=== PATIENT | male | born 1955 | race African-American/Black ===

== ENCOUNTER 2019-01-26 11:28 | Outpatient (CLI) | payer OTHER ==
[2019-01-26 11:59] LABS: CLARITY,URINE CLEAR (Clear); COLOR,URINE YELLOW (Yellow); GLUCOSE, URINE NEGATIVE (Neg); KETONES,URINE NEGATIVE (Neg); LEUKOCYTE ESTERASE ,URINE NEGATIVE (Neg); NITRITES, URINE NEGATIVE (Neg); OCCULT BLOOD,URINE NEGATIVE (Neg); PROTEIN,URINE NEGATIVE (Neg); UROBILINOGEN,URINE 0.2 E.U/dL (0.2-1.0)
[2019-01-26 12:01] LABS: UA COLLECTION TYPE VOIDED
[2019-01-26 12:01] LABS: BASOPHILS % (AUTO) 1.1 % (0-1); EOSINOPHILS # (AUTO) 0.1 X10'3 (0-0.9); HEMOGLOBIN 14.4 g/dl (14.0-17.9); LYMPHOCYTES # (AUTO) 0.9 X10'3 (1.1-4.8); MEAN CORPUSCULAR HEMOGLOBIN 30.5 PG (27.0-31.0); MONOCYTES # (AUTO) 0.3 X10'3 (0-0.9); NEUTROPHILS # (AUTO) 1.7 X10'3 (1.8-7.7)
[2019-01-26 12:03] LABS: EOSINOPHILS % (AUTO) 3.1 % (0-6); HEMATOCRIT 42.2 % (42.0-52.0); LYMPHOCYTES % (AUTO) 30.6 % (21-51); MEAN CORPUSCULAR HGB CONC 34.1 g/dL (33.0-36.5); MEAN CORPUSCULAR VOLUME 89.5 FL (78-98); MONOCYTES % (AUTO) 10.3 % (2-12); NEUTROPHILS % (AUTO) 54.9 % (42-75); PLATELET COUNT 220 X10'3 (140-440); RED BLOOD COUNT 4.72 X10'6 (4.70-6.10); RED CELL DISTRIBUTION WIDTH 13.5 % (11.5-14.5)
[2019-01-26 12:31] LABS: TOTAL CELLS COUNTED 100
[2019-01-26 12:32] LABS: PLATELET ESTIMATE NORMAL
[2019-01-26 12:33] LABS: GIANT PLATELET FEW; LARGE PLATELETS MODERATE
[2019-01-26 12:37] LABS: ALANINE AMINOTRANSFERASE 29 U/L (12-78); ALBUMIN 4.1 G/DL (3.4-5.0); ALBUMIN/GLOBULIN RATIO 1.2 (1.1-1.5); ALKALINE PHOSPHATASE 100 IU/L (46-116); ANION GAP 8 (8-16); ASPARTATE AMINO TRANSFERASE 21 U/L (10-37); BILIRUBIN,TOTAL 0.6 MG/DL (0.1-1.0); BLOOD UREA NITROGEN 10 MG/DL (7-18); BUN/CREATININE RATIO 10.8 (5.4-32.0); CALCIUM 9.2 MG/DL (8.5-10.1); CHLORIDE 104 MMOL/L (99-107); CHOLESTEROL 158 MG/DL (0-200); CREATININE 0.93 MG/DL (0.60-1.10); GLUCOSE 91 MG/DL (70-104); HDL CHOLESTEROL 81 MG/DL (35-60); LDL CHOLESTEROL 75 MG/DL (50-100); SODIUM 141 MMOL/L (135-145); TOTAL PROTEIN 7.5 G/DL (6.4-8.2); TRIGLYCERIDES 32 MG/DL (20-135); eGFR > 90 ML/MIN
[2019-01-27 10:00] LABS: % FREE PSA 33.3 % (.)
== END 2019-01-26 23:59 | disposition home or self-care (01) ==
LOC: LAB 11:28
PROVIDERS: ATTEND Family Medicine
DX: Z12.5 Encounter for screening for malignant neoplasm of prostate (principal); R00.2 Palpitations; E55.9 Vitamin D deficiency, unspecified; E53.8 Deficiency of other specified B group vitamins; E78.5 Hyperlipidemia, unspecified; R53.83 Other fatigue; Z76.89 Persons encountering health services in other specified circumstances
CPT/HCPCS: 80053; 80061; 81003; 82306; 82607; 82746; 84153; 84154; 84439; 84443; 85025

== ENCOUNTER 2019-06-06 12:32 | Outpatient (CLI) | payer OTHER ==
[2019-06-06 12:59] LABS: EOSINOPHILS # (AUTO) 0.2 X10'3 (0-0.9); EOSINOPHILS % (AUTO) 6.2 % (0-6); HEMOGLOBIN 13.8 g/dl (14.0-17.9); WHITE BLOOD COUNT 3.4 X10'3 (4.5-11.0)
[2019-06-06 13:01] LABS: BASOPHILS % (AUTO) 1.3 % (0-1); HEMATOCRIT 40.6 % (42.0-52.0); LYMPHOCYTES # (AUTO) 1.1 X10'3 (1.1-4.8); LYMPHOCYTES % (AUTO) 32.6 % (21-51); MEAN CORPUSCULAR HEMOGLOBIN 30.4 PG (27.0-31.0); MEAN CORPUSCULAR VOLUME 89.4 FL (78-98); MEAN PLATELET VOLUME 8.9 FL (7.4-10.4); MONOCYTES # (AUTO) 0.4 X10'3 (0-0.9); MONOCYTES % (AUTO) 10.6 % (2-12); NEUTROPHILS # (AUTO) 1.7 X10'3 (1.8-7.7); NEUTROPHILS % (AUTO) 49.3 % (42-75); PLATELET COUNT 249 X10'3 (140-440); RED BLOOD COUNT 4.54 X10'6 (4.70-6.10); RED CELL DISTRIBUTION WIDTH 13.1 % (11.5-14.5)
[2019-06-06 13:51] LABS: LARGE PLATELETS FEW; PLATELET ESTIMATE NORMAL
== END 2019-06-06 23:59 | disposition home or self-care (01) ==
LOC: LAB 12:32
PROVIDERS: ATTEND Family Medicine
DX: D72.819 Decreased white blood cell count, unspecified (principal)
CPT/HCPCS: 36415; 85025

== ENCOUNTER 2019-11-01 08:01 | Outpatient (CLI) | payer BC ==
[2019-11-01 08:45] LABS: BASOPHILS % (AUTO) 0.9 % (0-1); EOSINOPHILS # (AUTO) 0.2 X10'3 (0-0.9); EOSINOPHILS % (AUTO) 4.5 % (0-6); HEMATOCRIT 42.5 % (42.0-52.0); HEMOGLOBIN 14.2 g/dl (14.0-17.9); LYMPHOCYTES # (AUTO) 1.1 X10'3 (1.1-4.8); LYMPHOCYTES % (AUTO) 29.3 % (21-51); MEAN CORPUSCULAR HEMOGLOBIN 30.6 PG (27.0-31.0); MEAN CORPUSCULAR HGB CONC 33.3 g/dL (33.0-36.5); MEAN CORPUSCULAR VOLUME 91.9 FL (78-98); MEAN PLATELET VOLUME 9.5 FL (7.4-10.4); MONOCYTES # (AUTO) 0.4 X10'3 (0-0.9); MONOCYTES % (AUTO) 11.7 % (2-12); NEUTROPHILS % (AUTO) 53.6 % (42-75); PLATELET COUNT 193 X10'3 (140-440); RED BLOOD COUNT 4.62 X10'6 (4.70-6.10); RED CELL DISTRIBUTION WIDTH 13.2 % (11.5-14.5); WHITE BLOOD COUNT 3.7 X10'3 (4.5-11.0)
[2019-11-01 09:13] LABS: LARGE PLATELETS FEW; PLATELET ESTIMATE NORMAL
== END 2019-11-01 23:59 | disposition home or self-care (01) ==
LOC: LAB 08:01
PROVIDERS: ATTEND Family Medicine
DX: D72.819 Decreased white blood cell count, unspecified (principal)
CPT/HCPCS: 36415; 84153; 84154; 85025

== ENCOUNTER 2020-01-10 09:13 | Outpatient (CLI) | payer BC | END 2020-01-10 23:59 | disposition home or self-care (01) | LOC: LAB 09:13 | PROVIDERS: ATTEND Family Medicine | DX: G50.0 Trigeminal neuralgia (principal) | CPT/HCPCS: 36415; 85651 ==

== ENCOUNTER 2020-01-21 11:40 | Emergency (ER) | payer OTHER ==
[~2020-01-21] VITALS: Ht 170.2 cm; Wt 48.6 kg
[2020-01-21 11:43] VITALS: BP 118/71
--- NOTE | 2020-01-21 12:48 | NUR ---
WAITING ON PLAN
== END 2020-01-21 13:57 | disposition home or self-care (01) ==
LOC: ER 11:40 → EEVIPCON 11:40 → ER 13:57
DX: S90.01XA Contusion of right ankle, initial encounter (principal); W31.89XA Contact with other specified machinery, initial encounter; Y93.89 Activity, other specified; Y92.89 Other specified places as the place of occurrence of the external cause; Y99.8 Other external cause status
CPT/HCPCS: 73610; 99283

== ENCOUNTER → 2020-06-05 | Outpatient (CLI) | payer BC ==
[2020-06-05 10:14] LABS: BASOPHILS % (AUTO) 1.5 % (0-1); EOSINOPHILS # (AUTO) 0.1 X10'3 (0-0.9); EOSINOPHILS % (AUTO) 3.3 % (0-6); HEMOGLOBIN 14.3 g/dl (14.0-17.9); LYMPHOCYTES # (AUTO) 0.8 X10'3 (1.1-4.8); LYMPHOCYTES % (AUTO) 28.5 % (21-51); MEAN CORPUSCULAR HEMOGLOBIN 30.3 PG (27.0-31.0); MEAN CORPUSCULAR HGB CONC 33.3 g/dL (33.0-36.5); MEAN PLATELET VOLUME 9.1 FL (7.4-10.4); MONOCYTES # (AUTO) 0.3 X10'3 (0-0.9); MONOCYTES % (AUTO) 10.9 % (2-12); NEUTROPHILS # (AUTO) 1.5 X10'3 (1.8-7.7); NEUTROPHILS % (AUTO) 55.8 % (42-75); PLATELET COUNT 222 X10'3 (140-440); RED BLOOD COUNT 4.72 X10'6 (4.70-6.10); RED CELL DISTRIBUTION WIDTH 13.4 % (11.5-14.5); WHITE BLOOD COUNT 2.7 X10'3 (4.5-11.0)
[2020-06-05 10:21] LABS: CLARITY,URINE CLEAR (Clear); COLOR,URINE STRAW (Yellow); GLUCOSE, URINE NEGATIVE (Neg); KETONES,URINE NEGATIVE (Neg); LEUKOCYTE ESTERASE ,URINE NEGATIVE (Neg); NITRITES, URINE NEGATIVE (Neg); OCCULT BLOOD,URINE NEGATIVE (Neg); PH,URINE 7.5 (4.8-8.0); PROTEIN,URINE NEGATIVE (Neg); UROBILINOGEN,URINE 0.2 E.U/dL (0.2-1.0)
[2020-06-05 10:24] LABS: UA COLLECTION TYPE CLN CATCH MIDSTREAM
[2020-06-05 10:46] LABS: D-DIMER 0.32 MG/L FEU (0-0.50)
[2020-06-05 10:48] LABS: LARGE PLATELETS FEW; PLATELET ESTIMATE NORMAL; TOTAL CELLS COUNTED 100
[2020-06-05 10:56] LABS: ALANINE AMINOTRANSFERASE 29 U/L (12-78); ALBUMIN 3.9 G/DL (3.4-5.0); ALBUMIN/GLOBULIN RATIO 1.1 (1.1-1.5); ALKALINE PHOSPHATASE 116 IU/L (46-116); ANION GAP 6 (8-16); ASPARTATE AMINO TRANSFERASE 23 U/L (10-37); BILIRUBIN,TOTAL 0.4 MG/DL (0.1-1.0); BLOOD UREA NITROGEN 13 MG/DL (7-18); BUN/CREATININE RATIO 13.4 (5.4-32.0); CALCIUM 9.6 MG/DL (8.5-10.1); CHLORIDE 105 MMOL/L (99-107); CHOL/HDL RATIO 1.9 (0.00-4.99); CHOLESTEROL 166 MG/DL (0-200); CREATININE 0.97 MG/DL (0.60-1.10); GLUCOSE 93 MG/DL (70-104); HDL CHOLESTEROL 88 MG/DL (35-60); LDL CHOLESTEROL 73 MG/DL (50-100); POTASSIUM 4.5 MMOL/L (3.5-5.1); SODIUM 141 MMOL/L (135-145); TOTAL CARBON DIOXIDE 30.4 MMOL/L (24-32); TOTAL PROTEIN 7.4 G/DL (6.4-8.2); TRIGLYCERIDES 34 MG/DL (20-135); eGFR > 90 ML/MIN
[2020-06-05 11:13] LABS: RHEUM FACTOR QUAL REFLEX TITER NEGATIVE (Neg)
== END | disposition home or self-care (01) ==
LOC: LAB 09:44
PROVIDERS: ATTEND Family Medicine
DX: Z00.00 Encounter for general adult medical examination without abnormal findings (principal)
CPT/HCPCS: 36415; 80053; 80061; 81003; 84153; 84439; 84443; 85007; 85025; 85379; 86430

== ENCOUNTER 2020-07-04 08:54 | Emergency (ER) | payer MEDICARE, BC ==
[~2020-07-04] VITALS: Ht 170.2 cm; Wt 49.1 kg
[2020-07-04 09:31] LABS: HEMOGLOBIN 13.9 g/dl (14.0-17.9); LYMPHOCYTES # (AUTO) 0.9 X10'3 (1.1-4.8); MONOCYTES # (AUTO) 0.4 X10'3 (0-0.9); NEUTROPHILS # (AUTO) 1.6 X10'3 (1.8-7.7)
[2020-07-04 09:33] LABS: BASOPHILS % (AUTO) 0.9 % (0-1); EOSINOPHILS # (AUTO) 0.1 X10'3 (0-0.9); EOSINOPHILS % (AUTO) 4.4 % (0-6); HEMATOCRIT 41.9 % (42.0-52.0); LYMPHOCYTES % (AUTO) 29.2 % (21-51); MEAN CORPUSCULAR HEMOGLOBIN 29.9 PG (27.0-31.0); MEAN CORPUSCULAR HGB CONC 33.1 g/dL (33.0-36.5); MEAN CORPUSCULAR VOLUME 90.3 FL (78-98); MEAN PLATELET VOLUME 9.2 FL (7.4-10.4); MONOCYTES % (AUTO) 11.9 % (2-12); NEUTROPHILS % (AUTO) 53.6 % (42-75); PLATELET COUNT 226 X10'3 (140-440); RED BLOOD COUNT 4.64 X10'6 (4.70-6.10); RED CELL DISTRIBUTION WIDTH 13.4 % (11.5-14.5); WHITE BLOOD COUNT 3.1 X10'3 (4.5-11.0)
[2020-07-04 09:45] LABS: ALANINE AMINOTRANSFERASE 27 U/L (12-78); ALBUMIN 3.9 G/DL (3.4-5.0); ALBUMIN/GLOBULIN RATIO 1.2 (1.1-1.5); ALKALINE PHOSPHATASE 108 IU/L (46-116); ANION GAP 6 (8-16); ASPARTATE AMINO TRANSFERASE 27 U/L (10-37); BILIRUBIN,TOTAL 0.5 MG/DL (0.1-1.0); BLOOD UREA NITROGEN 12 MG/DL (7-18); BUN/CREATININE RATIO 12.8 (5.4-32.0); CALCIUM 9.6 MG/DL (8.5-10.1); CHLORIDE 105 MMOL/L (99-107); CREATININE 0.94 MG/DL (0.60-1.10); GLUCOSE 95 MG/DL (70-104); POTASSIUM 4.2 MMOL/L (3.5-5.1); SODIUM 142 MMOL/L (135-145); TOTAL CARBON DIOXIDE 30.6 MMOL/L (24-32); TOTAL PROTEIN 7.2 G/DL (6.4-8.2); eGFR > 90 ML/MIN
[2020-07-04 09:48] LABS: LARGE PLATELETS FEW; PLATELET ESTIMATE NORMAL
[2020-07-04 09:49] LABS: POIKILOCYTOSIS FEW
[2020-07-04 09:50] VITALS: BP 120/71
== END 2020-07-04 10:27 | disposition home or self-care (01) ==
LOC: EEVIPCON 08:54 → ER 08:54
DX: R00.2 Palpitations (principal); D64.9 Anemia, unspecified; F43.9 Reaction to severe stress, unspecified
CPT/HCPCS: 36415; 71045; 80053; 83880; 84443; 84484; 85008; 85025; 93005; 99285

== ENCOUNTER 2021-05-07 09:09 | Outpatient (CLI) | payer BC ==
[2021-05-07 09:45] LABS: EOSINOPHILS # (AUTO) 0.2 X10'3 (0-0.9); EOSINOPHILS % (AUTO) 4.4 % (0-6); MONOCYTES # (AUTO) 0.4 X10'3 (0-0.9)
[2021-05-07 09:47] LABS: BASOPHILS % (AUTO) 1.2 % (0-1); LYMPHOCYTES % (AUTO) 26.3 % (21-51); MEAN CORPUSCULAR HEMOGLOBIN 30.4 PG (27.0-31.0); MEAN CORPUSCULAR HGB CONC 33.4 g/dL (33.0-36.5); MEAN PLATELET VOLUME 8.9 FL (7.4-10.4); MONOCYTES % (AUTO) 10.3 % (2-12); NEUTROPHILS # (AUTO) 2.2 X10'3 (1.8-7.7); NEUTROPHILS % (AUTO) 57.8 % (42-75); PLATELET COUNT 251 X10'3 (140-440); RED BLOOD COUNT 4.62 X10'6 (4.70-6.10); WHITE BLOOD COUNT 3.7 X10'3 (4.5-11.0)
[2021-05-07 09:53] LABS: CLARITY,URINE CLEAR (Clear); COLOR,URINE YELLOW (Yellow); GLUCOSE, URINE NEGATIVE (Neg); KETONES,URINE NEGATIVE (Neg); LEUKOCYTE ESTERASE ,URINE NEGATIVE (Neg); NITRITES, URINE NEGATIVE (Neg); OCCULT BLOOD,URINE NEGATIVE (Neg); PH,URINE 7.5 (4.8-8.0); PROTEIN,URINE NEGATIVE (Neg); UROBILINOGEN,URINE 0.2 E.U/dL (0.2-1.0)
[2021-05-07 09:54] LABS: UA COLLECTION TYPE CLN CATCH MIDSTREAM
[2021-05-07 10:28] LABS: ALBUMIN 3.8 G/DL (3.4-5.0); ALBUMIN/GLOBULIN RATIO 1.1 (1.1-1.5); ALKALINE PHOSPHATASE 108 IU/L (46-116); ANION GAP 8 (8-16); ASPARTATE AMINO TRANSFERASE 27 U/L (10-37); BILIRUBIN,TOTAL 0.5 MG/DL (0.1-1.0); BLOOD UREA NITROGEN 17 MG/DL (7-18); BUN/CREATININE RATIO 18.3 (5.4-32.0); CALCIUM 9.2 MG/DL (8.5-10.1); CHLORIDE 107 MMOL/L (99-107); CHOL/HDL RATIO 1.8 (0.00-4.99); CHOLESTEROL 175 MG/DL (0-200); CREATININE 0.93 MG/DL (0.60-1.10); GLUCOSE 103 MG/DL (70-104); HDL CHOLESTEROL 96 MG/DL (35-60); LDL CHOLESTEROL 65 MG/DL (50-100); POTASSIUM 4.3 MMOL/L (3.5-5.1); SODIUM 144 MMOL/L (135-145); TOTAL CARBON DIOXIDE 29.4 MMOL/L (24-32); TOTAL PROTEIN 7.4 G/DL (6.4-8.2); TRIGLYCERIDES 24 MG/DL (20-135); eGFR > 90 ML/MIN
[2021-05-07 10:46] LABS: ALANINE AMINOTRANSFERASE 31 U/L (12-78)
[2021-05-08 13:29] LABS: ANTINUCLEAR ANTIBODIES Negative (Negative)
== END 2021-05-07 23:59 | disposition home or self-care (01) ==
LOC: LAB 09:09
PROVIDERS: ATTEND Family Medicine
DX: Z00.01 Encounter for general adult medical examination with abnormal findings (principal)
CPT/HCPCS: 80053; 80061; 81003; 84153; 84439; 84443; 85025; 86038

== ENCOUNTER 2022-09-09 09:18 | Outpatient (CLI) | payer BC ==
[2022-09-09 09:44] LABS: CLARITY,URINE CLEAR (Clear); COLOR,URINE YELLOW (Yellow); GLUCOSE, URINE NEGATIVE (Neg); KETONES,URINE NEGATIVE (Neg); LEUKOCYTE ESTERASE ,URINE NEGATIVE (Neg); NITRITES, URINE NEGATIVE (Neg); OCCULT BLOOD,URINE NEGATIVE (Neg); PROTEIN,URINE NEGATIVE (Neg); UROBILINOGEN,URINE 0.2 E.U/dL (0.2-1.0)
[2022-09-09 09:48] LABS: EOSINOPHILS # (AUTO) 0.2 X10'3 (0-0.9); HEMOGLOBIN 13.6 g/dl (14.0-17.9); MEAN CORPUSCULAR VOLUME 90.5 FL (78-98); MEAN PLATELET VOLUME 8.9 FL (7.4-10.4); MONOCYTES # (AUTO) 0.4 X10'3 (0-0.9); MONOCYTES % (AUTO) 11.2 % (2-12)
[2022-09-09 09:50] LABS: EOSINOPHILS % (AUTO) 3.8 % (0-6); HEMATOCRIT 40.6 % (42.0-52.0); LYMPHOCYTES # (AUTO) 1.4 X10'3 (1.1-4.8); LYMPHOCYTES % (AUTO) 35.7 % (21-51); MEAN CORPUSCULAR HEMOGLOBIN 30.2 PG (27.0-31.0); MEAN CORPUSCULAR HGB CONC 33.4 g/dL (33.0-36.5); NEUTROPHILS # (AUTO) 1.9 X10'3 (1.8-7.7); NEUTROPHILS % (AUTO) 48.3 % (42-75); PLATELET COUNT 235 X10'3 (140-440); RED BLOOD COUNT 4.49 X10'6 (4.70-6.10); RED CELL DISTRIBUTION WIDTH 12.9 % (11.5-14.5)
[2022-09-09 09:51] LABS: ALANINE AMINOTRANSFERASE 23 U/L (12-78); ALBUMIN 3.7 G/DL (3.4-5.0); ALBUMIN/GLOBULIN RATIO 1.2 (1.1-1.5); ALKALINE PHOSPHATASE 107 IU/L (46-116); ANION GAP 6 (8-16); ASPARTATE AMINO TRANSFERASE 23 U/L (10-37); BILIRUBIN,TOTAL 0.5 MG/DL (0.1-1.0); BLOOD UREA NITROGEN 16 MG/DL (7-18); BUN/CREATININE RATIO 16.7 (10.0-20.0); CALCIUM 8.9 MG/DL (8.5-10.1); CHLORIDE 105 MMOL/L (99-107); CHOL/HDL RATIO 1.8 (0.00-4.99); CHOLESTEROL 164 MG/DL (0-200); CREATININE 0.96 MG/DL (0.60-1.10); GLUCOSE 104 MG/DL (70-104); HDL CHOLESTEROL 89 MG/DL (35-60); LDL CHOLESTEROL 70 MG/DL (50-100); SODIUM 141 MMOL/L (135-145); TOTAL CARBON DIOXIDE 30.1 MMOL/L (24-32); TOTAL PROTEIN 6.8 G/DL (6.4-8.2); TRIGLYCERIDES 45 MG/DL (20-135); eGFR > 90 ML/MIN
[2022-09-09 09:58] LABS: UA COLLECTION TYPE VOIDED
== END 2022-09-09 23:59 | disposition home or self-care (01) ==
LOC: LAB 09:18
PROVIDERS: ATTEND Family Medicine
DX: Z00.01 Encounter for general adult medical examination with abnormal findings (principal)
CPT/HCPCS: 36415; 80053; 80061; 81003; 84439; 84443; 85025

== ENCOUNTER 2023-03-09 09:23 | Outpatient (CLI) | payer BC | END 2023-03-09 23:59 | disposition home or self-care (01) | LOC: LAB 09:23 | PROVIDERS: ATTEND Family Medicine | DX: G62.9 Polyneuropathy, unspecified (principal) | CPT/HCPCS: 36415 ==

== ENCOUNTER 2024-11-28 13:21 | Outpatient (CLI) | payer BC ==
[2024-11-28 14:08] LABS: MEAN PLATELET VOLUME 8.7 FL (7.4-10.4); RED CELL DISTRIBUTION WIDTH 13.3 % (11.5-14.5)
[2024-11-28 14:11] LABS: LEUKOCYTE ESTERASE ,URINE NEGATIVE (Neg); NITRITES, URINE NEGATIVE (Neg); OCCULT BLOOD,URINE NEGATIVE (Neg)
[2024-11-28 14:21] LABS: UA COLLECTION TYPE CLN CATCH MIDSTREAM
[2024-11-28 14:22] LABS: MUCUS STRANDS MODERATE /LPF (Neg)
[2024-11-28 14:26] LABS: SQUAMOUS EPITHELIAL CELL,UR FEW /LPF (FEW)
[2024-11-28 14:50] LABS: CHOL/HDL RATIO 1.9 (0.00-4.99); CREATININE 0.96 MG/DL (0.60-1.10); LDL CHOLESTEROL 71 MG/DL (50-100); PRO BRAIN NATRIURETIC PEPTIDE 125 PG/ML (0-125); TOTAL CARBON DIOXIDE 29.1 MMOL/L (24-32); eGFR > 90 ML/MIN
--- NOTE | 2024-11-28 19:11 | CARDIOLOGY REPORT ---
APPROVED REPORT EXAM: Comprehensive 2D, Doppler, and color-flow Echocardiogram. 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 103.5 cm/s AoV VTI 20.6 cm AO Peak GR. 4.3 mmHg AO Mean GR. 2 mmHg LVOT VTI 18.23 cm LVOT Peak Kennedy. 86.1 cm/s GREY (VMAX) 2.59 cm2 GREY (VTI) 2.76 cm2 Mitral Valve MV E Velocity 62.0 cm/s MV DECEL TIME 249 ms MV A Velocity 35.8 cm/s MV PHT 51 ms E/A Ratio 1.7 MVA (PHT) 4.28 cm2 TDI E/Medial E' 6.9 Pulmonary Valve PV Peak Velocity 82.4 cm/s PV Peak Grad. 3 mmHg Tricuspid Valve TR P. Velocity 118 cm/s RAP ESTIMATE 10 mmHg TR Peak Gr. 6 mmHg RVSP 16 mmHg LEFT VENTRICLE Normal LV size and wall thickness. Overall systolic function is normal. LVEF is 60%. RIGHT VENTRICLE RV is normal size and function. ATRIA The left atrium size is normal. AORTIC VALVE Trileaflet AV appears mildly sclerotic without stenosis. No insufficiency. MITRAL VALVE Mild mitral annular calcification without stenosis. Trace reguritation. TRICUSPID VALVE The tricuspid valve is normal in structure with trivial regurgitation. PULMONIC VALVE The pulmonary valve is normal in structure with physiologic insufficiency. GREAT VESSELS The aortic root is normal in size. The ascending aorta is normal in size. The IVC is normal in size a nd collapses >50% with inspiration. PERICARDIUM Normal pericardium. No effusion. Other Information Study Quality: Adequate Conclusion Normal LV size and wall thickness. Overall systolic function is normal. LVEF is 60%. RV is normal size and function. The left atrium size is normal. Trileaflet AV appears mildly sclerotic without stenosis. No insufficiency. Mild mitral annular calcification without stenosis. Trace reguritation. The tricuspid valve is normal in structure with trivial regurgitation. Normal pericardium. No effusion.
== END 2024-11-28 23:59 | disposition home or self-care (01) ==
LOC: CARD DIAG 13:21
PROVIDERS: ATTEND Nurse Practitioner Family
DX: I34.81 Nonrheumatic mitral (valve) annulus calcification (principal); R00.2 Palpitations; R00.0 Tachycardia, unspecified; N40.1 Benign prostatic hyperplasia with lower urinary tract symptoms; I49.9 Cardiac arrhythmia, unspecified; D72.819 Decreased white blood cell count, unspecified; G62.9 Polyneuropathy, unspecified; R35.1 Nocturia; Z76.89 Persons encountering health services in other specified circumstances
CPT/HCPCS: 36415; 80053; 80061; 81001; 83735; 83880; 84153; 84439; 84443; 85025; 93306

== ENCOUNTER 2024-12-26 10:14 | Inpatient (IN) | payer BC, MEDICARE ==
[~2024-12-26] VITALS: Ht 172.7 cm; Wt 65.0 kg
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
[2024-12-26 10:44] LABS: MEAN PLATELET VOLUME 8.5 FL (7.4-10.4); RED CELL DISTRIBUTION WIDTH 13.5 % (11.5-14.5)
[2024-12-26 10:49] LABS: CREATININE 0.98 MG/DL (0.60-1.10); TOTAL CARBON DIOXIDE 29.2 MMOL/L (24-32); eCRCL 65 ML/MIN; eGFR > 90 ML/MIN
[2024-12-26 10:53] LABS: APTT 31 SECONDS (22-32); INR 1.1 INR
--- NOTE | 2024-12-26 10:58 | ELECTROCARDIOGRAPH REPORT ---
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 MALCOLM Bay Measurements Intervals [place] Rate: 67 P: 67 SC: 170 QRS: -19 QRSD: 108 T: 77 QT: 386 QTc: 408 Interpretive Statements Sinus rhythm Borderline left axis deviation Low voltage, extremity and precordial leads Abnormal R-wave progression, early transition Borderline ST elevation, anterior leads Baseline wander in lead(s) I,III,aVR,aVL,V2,V4 Electronically Signed On 12-26-2024 18:03:[address] MALCOLM Bay Please click the below link to view image of tracing.
--- NOTE | 2024-12-26 10:59 | RADIOLOGY REPORT ---
EXAM: CT CT STROKE ALERT INDICATION: Stroke Alert TECHNIQUE: CT of the head without intravenous contrast. Radiation Dose : 1. Head: CT Dose: CTDI volume is 53.3 mGy. Dose-length product is 898.5 mGy*cm The dose indicators for CT are the volume Computed Tomography (CT) Dose Index (CTDIvol) and the Dose Length Product (DLP), and are measured in units of mGy and mGy-cm, respectively. These indicators are not patient dose, but values generated from the CT scanner acquisition factors. The report includes radiation exposure data for exposures received during this examination. COMPARISON: None FINDINGS: There is no evidence of acute intracranial hemorrhage, extra-axial collection, mass effect, midline s hift, herniation or hydrocephalus. The ventricles, sulci and cisterns are age appropriate. Cavum septum pellucidum. The ramsey-white differentiation is intact. The visualized paranasal sinuses and mastoid air cells are clear. The surrounding soft tissues and osseous structures are unremarkable. IMPRESSION: No acute intracranial abnormality. Radiation optimization: All CT scans at this facility use at least one of these dose optimization bridger hniques: automated exposure control mA and/or kV adjustment per patient size (includes targeted exam s where dose is matched to clinical indication) or iterative reconstruction.
[2024-12-26 11:06] LABS: EOSINOPHILS % (MANUAL) 1.0 % (0-6); LYMPHOCYTES % (MANUAL) 12.0 % (21-51); MONOCYTES % (MANUAL) 15.0 % (2-12); NEUTROPHILS % (MANUAL) 72.0 % (42-75); PLATELET ESTIMATE NORMAL
--- NOTE | 2024-12-26 11:17 | RADIOLOGY REPORT ---
EXAM: DI CHEST,SINGLE VIEW Indication: pain Technique: Single frontal view of the chest was obtained Comparison: CHEST,SINGLE VIEW on DOS: 07/04/20 FINDINGS: Lines and Tubes: None Lungs: No focal consolidation. Pleura: No effusion. No pneumothorax. Cardiomediastinal contours: Unremarkable Bones: No acute osseous abnormality. IMPRESSION: No acute cardiopulmonary disease.
--- NOTE | 2024-12-26 11:26 | [facility] CONSULT REPORT ---
[facility] Procedure Note [facility] Procedure Note Consult [facility] Note # Demographics Consult Type: General Neurology Patient Location: Emergency Room First Name: Fer Last Name: River Date of : 1955 Age: 69 Gender: Male Facility: [facility] Time of Initial Page (): 12/26/2024 10:45 First Contact with Site (): 12/26/2024 10:48 # HPI History: 69y M who presented to the ER with an episode of bilateral leg weakness. He was driving home when his legs both suddenly felt weak. He was able to complete his drive and get into his house. This morning he reports some ongoing weakness but it is much improved he thinks, was able to walk into the ER without any issues # Scores Time of exam and NIHSS (): 12/26/2024 11:13 Level of Consciousness 1a: [0] = Alert; keenly responsive LOC Questions 1b: [0] = Answers both questions correctly LOC Commands 1c: [0] = Performs both tasks correctly Best Gaze 2: [0] = Normal Visual 3: [0] = No visual loss Facial Palsy 4: [0] = Normal symmetrical movements Motor Arm Left 5a: [0] = No drift Motor Arm Right 5b: [0] = No drift Motor Leg Left 6a: [0] = No drift Motor Leg Right 6b: [0] = No drift Limb Ataxia 7: [0] = Absent Sensory 8: [0] = Normal Best Language 9: [0] = No aphasia Dysarthria 10: [0] = Normal Extinction and Inattention 11: [0] = No abnormality NIHSS Total: 0 # Data Time Head CT personally read by me (): 12/26/2024 11:[address]: - no bleed - per radiologist read # Assessment Impression: - Other - Bilateral lower extremity weakness: improving, no other symptoms such as numbness, difficulty with urination or defecation, UE symptoms, vision changes, speech difficulties. He is covid positive. Weakness is improving, he is able to walk and is not weak on exam but reports subjectively feeling weak # Plan Thrombolytic/Intervention: NOT IV Thrombolysis or IA Intervention candidate Thrombolytic Exclusion: > 4.5 hours Intraarterial Exclusion: - clinical exam not consistent with presence of large vessel occlusion (LVO), can reconsider if LVO found on vascular imaging Modified Harrah Scale (mRS) pre-stroke: [0] = No symptoms at all. Target Blood Pressure: - Normotension Other: - If patient has any neurological deterioration please call me back immediately - I have discussed my recommendations with the referring provider - If symptoms do not improve with supportive care, new symptoms occur or worsening of weakness would reconsult for further work up # Logistics Attestation of consult completion: The patient is located at: [facility]. Facility staff participated in the visit. I performed this telemedicine visit from my offsite office utilizing interactive 2 way audio and visual telecommunication technology at the request of the onsite emergency room provider. Consent: Verbal consent was obtained from the patient and/or family for this encounter. Total time spent in telemedicine encounter: I spent 18 minutes reviewing clinical data and/or imaging, obtaining history, examining the patient, communicating with the onsite care team, and in preparation of this report. # Demographics First Name: Fer Last Name: River Facility: [facility] Electronically signed at 12/26/2024 11:25 ([place] Time) by Leandra Barrios DO Neuro Consult Order placed for: Yes LEANDRA BARRIOS DO Dec 26, 2024 11:26
[2024-12-26] MEDS ORDERED: NIRM1TAB13 PO (11:58)
[2024-12-26] MEDS: NIRMATRELVIR/RITONAVIR 300/100mg - 1 EACH TAB.DS.PK PO SCH (12:20)
[2024-12-26] MEDS: normal saline 1000ML IV soln IVB ONE ×2 (12:20)
[2024-12-26] MEDS ORDERED: magnesium sulf-water 4G/100mL 100 ML IV PRN (15:55)
[2024-12-26] MEDS ORDERED: potassium Cl 20 mEq SR tablet PO PRN ×2 (15:55)
[2024-12-26] MEDS ORDERED: HYDROcodone/acetaminophen 5mg/325mg tablet PO PRN (15:55)
[2024-12-26] MEDS ORDERED: HYDROcodone/acetaminophen 10/325mg tab PO PRN (15:55)
[2024-12-26] MEDS ORDERED: ondansetron/PF 4mg/2ml inj IV PRN (15:55)
[2024-12-26] MEDS ORDERED: potassium Cl 40MEQ/1/2NS 520ml 520 ML IV PRN (15:55)
[2024-12-26] MEDS ORDERED: mag hydrox/Alum hydrox/simeth 30ml oral suspension PO PRN (15:55)
[2024-12-26] MEDS ORDERED: magnesium sulf-water 2g/50mL 50 ML IV PRN (15:55)
[2024-12-26] MEDS ORDERED: magnesium hydroxide 30ml (MOM) UD suspension PO PRN (15:55)
--- NOTE | 2024-12-26 16:55 | HISTORY AND PHYSICAL ---
History & Physical Providers to ~ History of Present Illness Reason for Admit\Complaint: COVID-19, pneumonia History of Present Illness Fer Holman is a 69-year-old male with past medical history of arrhythmia who presented to the ED with chief complaint of acute onset bilateral lower extremity weakness and cough x 2 days. Patient denies prior WI/CAD, CVA, DVT/PE, or GIB. Patient denies chest pain, palpitations, shortness of breath, abdominal pain, n/v/d. Initial diagnostic findings were notable for positive COVID-19, fever, CT revealing left lower lung pneumonia with right middle lobe bronchiolitis. Patient is to be admitted for further workups and treatment. Allergies: Uncoded Allergies: BAKING POWDER (Allergy, Unknown, 04/29/16) Home Medications Home Medications Active Paxlovid 300-100 mg Dose Pack (Nirmatrelvir/Ritonavir) 300 Mg (150 Mg X 2)-100 Mg Tab.ds.pk 3 Tab PO BID 5 Days take per packaging instructions Past Medical History Past Medical History Tachyarrhythmia Past Surgical History Surgical History Comment Noncontributory Past Social History Social History Comment Alcohol: Denies Tobacco: Denies Illicit drug use: Denies Living situation: Lives at home with spouse ROS ROS Other than positives in HPI, all 14 review of systems are negative Exam Vitals: Vital Signs Date Time Temp Pulse Resp B/P (MAP) Pulse Ox O2 Delivery O2 Flow Rate FiO2 12/26/24 15:03 66 17 115/59 (77) 98 12/26/24 13:01 100.3 12/26/24 11:25 0 General: Generalized weakness, A&Ox 3, NAD HEENT: Normocephalic, PERRLA Neck: Supple, trachea midline, no JVD Chest: Clear to auscultation bilaterally Cardiovascular: RRR, S1&S2 Abdomen: Soft and nontender Extremities: No cyanosis/clubbing/or edema Central Nervous System: CN II-XII intact, no focal deficits Musculoskeletal: No paraspinal muscle tenderness, no muscle spasm Skin: Warm and intact Diagnostic Data Last Recorded Lab Results: 12/26/24 1034 12/26/24 1034 Diagnostic Data: Laboratory Tests Test 12/26/24 10:34 Prothrombin Time 11.2 SECONDS (9.0-12.0) INR International Normalized Ratio 1.1 INR Activated Partial Thromboplast Time 31 SECONDS (22-32) Coagulation Comments Additional Plan Assessment & Plan COVID19 Viral pneumonia -CT shows left lower lung pneumonia with right middle lobe bronchiolitis -antiviral, IVF, supportive care Hx Tachyarrhtymia -reported, no reported sliver chopper -EKG sinus 67bpm, no ST elevation/depression DVT/VTE prophylaxis: Heparin Code status: Full code I spent a total of 35 minutes discussing Advanced Care Planning measures with the patient. Advance care planning: Discussed with patient the importance of advance care planning in case of emergent situation. We discussed various resuscitative measures/ ACP with the patient at the time of admission. Patient voiced understanding and patient has decided on a full code status. Date of Service: Dec 26, 2024 Billing Provider: SILVIANO HART Common Visit Codes: 40101-RTGRYRM INP/OBS CARE (HIGH) Secondary Visit Codes: 06571-[id number] CARE PLAN 30 MINUTES SILVIANO HART Dec 26, 2024 16:55
--- NOTE | 2024-12-26 17:18 | RADIOLOGY REPORT ---
Procedure: CT CT [facility] Study Date and Requested Time: 12/26/2024 04:16 P M History: pneumonia Comparison: Chest radiograph 12/26/2024 Dose: CTDI: 11.87 mGy DLP: 469.8 mGycm Technique: Multiplanar images obtained through the chest without contrast Findings: The thyroid gland is unremarkable. Heart size is within normal limits. No evidence of aortic aneurysm. Pulmonary trunk is normal in siz e. Biapical , lingula and bibasilar atelectasis/scarring. No pneumothorax or pleural effusion. Left lowe r lobe patchy opacities. Right middle lobe with tree-in-bud opacities. No significant mediastinal lymphadenopathy. Subcentimeter hepatic hypodense lesions that are too small to characterize. Otherwise, Partial view o f the upper abdomen is unremarkable. Mild body wall edema. No evidence of acute osseous abnormalities. Partial view of the upper abdomen is unremarkable. Impression: Left lower lung zone ground-glass and solid opacities which may represent pneumonia with right middle lobe tree-in-bud opacities which may represent infectious bronchiolitis.
[2024-12-26] MEDS: normal saline 1000ml 1,000 ML IV SCH (17:33)
[2024-12-26] MEDS ORDERED: ipratropium/albuterol 3ml nebule NEB PRN (18:10)
[2024-12-26] MEDS ORDERED: albuterol 60 PUFF/8GM Inhaler (90mcg/1 puff) IH PRN (19:08)
[2024-12-26] MEDS ORDERED: NO HOME MEDS (19:41)
[2024-12-26] MEDS: docusate sod 100mg capsule PO SCH (20:00)
[2024-12-26] MEDS: K and/or MAG REPLACEMENT MC SCH (20:00)
[2024-12-26 20:28] LABS: LEUKOCYTE ESTERASE ,URINE NEGATIVE (Neg); NITRITES, URINE NEGATIVE (Neg); OCCULT BLOOD,URINE SMALL (Neg)
[2024-12-26 20:31] LABS: UA COLLECTION TYPE NON-SPECIFIED
[2024-12-26 20:39] LABS: SQUAMOUS EPITHELIAL CELL,UR FEW /LPF (FEW)
[2024-12-26 21:00] VITALS: BP 114/56; PULSE 63; RESP 13; TEMP 100.3; O2SAT 99
[2024-12-26 21:16] VITALS: PULSE 102; RESP 18; O2SAT 95
[2024-12-26 21:30] VITALS: RESP 13; O2SAT 99
[2024-12-26] MEDS: heparin, porcine 5000 units/ml vial SQ SCH (21:33)
[2024-12-26 22:00] VITALS: BP 107/52; PULSE 63; RESP 15; TEMP 100.7; O2SAT 96
[2024-12-27] VITALS (9 sets, daily range): BP systolic 92–124; BP diastolic 53–78; PULSE 59–84; RESP 14–20; TEMP 97.3–100.7; O2SAT 95–98
[2024-12-27 07:38] LABS: MEAN PLATELET VOLUME 8.7 FL (7.4-10.4); RED CELL DISTRIBUTION WIDTH 13.7 % (11.5-14.5)
[2024-12-27] MEDS ORDERED: REMDESIVIR INJ (loading dose) 100 MG in normal saline 100ml IV soln 100 ML IV SCH (08:00)
[2024-12-27 08:25] LABS: CREATININE 0.95 MG/DL (0.60-1.10); TOTAL CARBON DIOXIDE 26.8 MMOL/L (24-32); eCRCL 67 ML/MIN; eGFR > 90 ML/MIN
--- NOTE | 2024-12-27 11:32 | PROGRESS NOTE ---
Daily Progress Note Providers to CC ~ Antibiotic Timeout Antibiotic Ordered?: No Subjective No acute events overnight. Patient examined at bedside. No new complaints, not in acute distress. Patient denies chest pain, sob, palpitations, abdominal pain, n/v/d. Vss, afebrile, labs unremarkable. Objective Vital Signs Date Time Temp Pulse Resp B/P (MAP) Pulse Ox O2 Delivery O2 Flow Rate FiO2 12/27/24 06:30 77 12/27/24 06:00 98.2 20 110/53 (72) 95 Room Air 12/26/24 21:16 0 21 Result Diagram: 12/27/24 0707 12/27/24 0707 Physical Exam General: Generalized weakness, A&Ox3, NAD HEENT: Normocephalic, PERRLA Neck: Supple, trachea midline, no JVD Chest: Clear to auscultation bilaterally Cardiovascular: RRR, S1&S2 GI: Soft and nontender Extremities: No cyanosis/clubbing/or edema DIRECT SUPPORT PROFESSIONAL CAREGIVER: CN II-XII intact, no focal deficits Musculoskeletal: No paraspinal muscle tenderness, no muscle spasm Skin: Warm and intact Coagulation Studies Laboratory Tests Test 12/26/24 10:34 Prothrombin Time 11.2 SECONDS (9.0-12.0) INR International Normalized Ratio 1.1 INR Activated Partial Thromboplast Time 31 SECONDS (22-32) Coagulation Comments Problem\Assessment\Plan Assessment & Plan COVID19 Viral pneumonia -CT shows left lower lung pneumonia with right middle lobe bronchiolitis -12/27: continue antiviral Hx Tachyarrhtymia -reported, 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
[2024-12-27] MEDS: NIRMATRELVIR/RITONAVIR 300/100mg - 1 EACH TAB.DS.PK PO ONE (16:56)
[2024-12-27] MEDS ORDERED: NIRMATRELVIR/RITONAVIR 300/100mg - 1 EACH TAB.DS.PK PO SCH ×2 (20:00→23:00)
[2024-12-28] VITALS (7 sets, daily range): BP systolic 102–130; BP diastolic 52–78; PULSE 61–80; RESP 14–20; TEMP 97.5–98.7; O2SAT 96–99
[2024-12-28 06:31] LABS: MEAN PLATELET VOLUME 8.5 FL (7.4-10.4); RED CELL DISTRIBUTION WIDTH 13.5 % (11.5-14.5)
[2024-12-28] MEDS: NIRMATRELVIR/RITONAVIR 300/100mg - 1 EACH TAB.DS.PK PO SCH (08:00)
[2024-12-28 10:56] LABS: CREATININE 0.88 MG/DL (0.60-1.10); TOTAL CARBON DIOXIDE 26.4 MMOL/L (24-32); eCRCL 73 ML/MIN; eGFR > 90 ML/MIN
--- NOTE | 2024-12-28 16:39 | PROGRESS NOTE ---
Daily Progress Note Providers to CC ~ Antibiotic Timeout Antibiotic Ordered?: No Subjective No acute events overnight. Patient examined at bedside. No new complaints, not in acute distress. Patient denies chest pain, sob, palpitations, abdominal pain, n/v/d. Vss, fever yesterday today afebrile, labs unremarkable. Continue PT. Objective Vital Signs Date Time Temp Pulse Resp B/P (MAP) Pulse Ox O2 Delivery O2 Flow Rate FiO2 12/28/24 08:00 16 97 Room Air 12/28/24 06:30 60 12/28/24 02:00 98.0 103/52 (69) 12/27/24 15:50 0 21 Result Diagram: 12/28/24 0601 12/28/24 06 Physical Exam General: Generalized weakness, A&Ox3, NAD HEENT: Normocephalic, PERRLA Neck: Supple, trachea midline, no JVD Chest: Clear to auscultation bilaterally Cardiovascular: RRR, S1&S2 GI: Soft and nontender Extremities: No cyanosis/clubbing/or edema GEOSPATIAL DEVELOPER: CN II-XII intact, no focal deficits Musculoskeletal: No paraspinal muscle tenderness, no muscle spasm Skin: Warm and intact Coagulation Studies Laboratory Tests Test 12/26/24 10:34 Prothrombin Time 11.2 SECONDS (9.0-12.0) INR International Normalized Ratio 1.1 INR Activated Partial Thromboplast Time 31 SECONDS (22-32) Coagulation Comments Problem\Assessment\Plan Assessment & Plan COVID19 Viral pneumonia -CT shows left lower lung pneumonia with right middle lobe bronchiolitis -12/27: continue antiviral -12/28: continue PT Hx Tachyarrhtymia -reported, no 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
[2024-12-29 02:00] VITALS: BP 112/58; PULSE 53; RESP 13; TEMP 97.2; O2SAT 99
[2024-12-29 06:00] VITALS: BP 109/60; PULSE 55; RESP 15; TEMP 98.3; O2SAT 99
[2024-12-29 06:55] LABS: MEAN PLATELET VOLUME 8.6 FL (7.4-10.4); RED CELL DISTRIBUTION WIDTH 13.2 % (11.5-14.5)
[2024-12-29 07:27] LABS: CREATININE 0.71 MG/DL (0.60-1.10); TOTAL CARBON DIOXIDE 26.4 MMOL/L (24-32); eCRCL 90 ML/MIN; eGFR > 90 ML/MIN
--- NOTE | 2024-12-29 13:31 | DISCHARGE SUMMARY ---
Discharge Summary Providers to CC ~ Discharge Summary Admission Diagnosis: COVID19 Hospital Course DATE OF ADMISSION: 12/26/24 DATE OF DISCHARGE: 12/29/24 Discharge Diagnosis\Comment: COVID19 Viral pneumonia Hx Tachyarrhtymia Generalized weakness Operations\Procedures: None Consultants: Teleneurologist Leandra Orr Complications: None Condition on DC: Stable Continued Medications: Home Med List (No Home Medications) Each Discontinued Medications: Nirmatrelvir/Ritonavir (Paxlovid 300-100 mg Dose Pack) 300 Mg (150 Mg X 2)-100 Mg Tab.ds.pk 3 TAB PO BID for 5 Days, #30 TAB take per packaging instructions Discharge Summary: History of Present Illness Fer Holman is a 69-year-old male with past medical history of arrhythmia who presented to the ED with chief complaint of acute onset bilateral lower extremity weakness and cough x 2 days. Patient denies prior NM/CAD, CVA, DVT/PE, or GIB. Patient denies chest pain, palpitations, shortness of breath, abdominal pain, n/v/d. Initial diagnostic findings were notable for positive COVID-19, fever, CT revealing left lower lung pneumonia with right middle lobe bronchiolitis. Patient is to be admitted for further workups and treatment. Hospital Course Diagnostic findings were notable for positive COVID19 antigen, fever, chest CT revealing pneumonia. Patient was treated with intravenous fluids and antiviral. Case was consulted with teleneurologist with low yield for stroke, hence further stroke workup was not pursued. Patient did not experience further complications throughout the entire hospital stay and made a good recovery. Patient was seen and examined on the day of discharge. On day of discharge, vss and labs unremarkable. Telemetry remained sinus in 70s. All labs, diagnostic workups, discharge plan discussed with patient in details during visit before discharge. All questions and concerns answered to the best of my professional knowledge. Patient is to be discharged with FWW and to follow-up with PCP within 2 weeks. Physical Exam General: Generalized weakness, A&Ox 3, NAD HEENT: Normocephalic, PERRLA Neck: Supple, trachea midline, no JVD Chest: Clear to auscultation bilaterally Cardiovascular: RRR, S1&S2 GI: Soft and nontender Extremities: No cyanosis/clubbing/or edema CARROT BUNCHER: CN II-XII intact, no focal deficits Musculoskeletal: No paraspinal muscle tenderness, no muscle spasm Skin: Warm and intact *Problems/Diagnosis: (1) Weakness Status: Acute (2) Anemia Status: Acute (3) Dehydration Status: Acute (4) COVID-19 Status: Acute Total Time Spent on D/C: > 30 Minutes Date of Service: Dec 29, 2024 Billing Provider: SILVIANO HART Common Visit Codes: 48168-[id number]/[id number] DISCH DAY >30min SILVIANO HART Dec 29, 2024 13:31
== END 2024-12-29 13:17 | disposition home or self-care (01) | DRG 177 ==
LOC: ER 10:15 → ED HOLD 16:06 → PCU 3S 20:15
PROVIDERS: ADMIT Nurse Practitioner Family; ATTEND Nurse Practitioner Family
DX: U07.1 COVID-19 (principal); J12.82 Pneumonia due to coronavirus disease 2019; J21.8 Acute bronchiolitis due to other specified organisms; D64.9 Anemia, unspecified; E86.0 Dehydration; R53.1 Weakness
CPT/HCPCS: 36415; 70450; 71045; 71250; 80048; 80053; 81001; 82948; 83735; 84145; 85007; 85025; 85610; 85730; 87081; 87811; 93005; 94760; 96360; 96361; 96372; 97110; 97116; 97161; 97530; 99285; A6590; G0378; J1644; J7030

== ENCOUNTER 2025-01-04 11:04 | Outpatient (CLI) | payer BC, MEDICARE ==
[~2025-01-04 11:04] MED LIST: NO HOME MEDS
[2025-01-04 11:47] LABS: MEAN PLATELET VOLUME 8.3 FL (7.4-10.4); RED CELL DISTRIBUTION WIDTH 13.4 % (11.5-14.5)
[2025-01-04 12:08] LABS: LEUKOCYTE ESTERASE ,URINE NEGATIVE (Neg); NITRITES, URINE NEGATIVE (Neg); OCCULT BLOOD,URINE NEGATIVE (Neg)
[2025-01-04 12:14] LABS: UA COLLECTION TYPE CLN CATCH MIDSTREAM
--- NOTE | 2025-01-04 13:25 | RADIOLOGY REPORT ---
Technique: Real-time ultrasound images through the pelvis using a transabdominal transducer. Indication: ELEVATED PROSTATE SPECIFIC ANTIGEN [PSA] Comparison: None Findings: Prostate massively enlarged measuring 11.8 x 11 cm impressing / extending into the posterior bladder. Bladder volume of 70 cc prevoid and 6 cc postvoid. Impression: Severe prostatomegaly. Recommend urology consultation Bladder postvoid residual within normal limits.
[2025-01-07 07:33] LABS: PSA, ULTRASENSITIVE W/O SERIAL 19.500 ng/mL (0.000-4.000); TESTOSTERONE, SERUM 644 ng/dL (264-916)
[2025-01-08 17:20] LABS: TESTOSTERONE, FREE, DIRECT 4.0 pg/mL (6.6-18.1)
== END 2025-01-04 23:59 | disposition home or self-care (01) ==
LOC: RAD 11:04
PROVIDERS: ATTEND Nurse Practitioner Family
DX: N40.0 Benign prostatic hyperplasia without lower urinary tract symptoms (principal); D61.818 Other pancytopenia; R82.90 Unspecified abnormal findings in urine; R97.20 Elevated prostate specific antigen [PSA]
CPT/HCPCS: 36415; 76857; 81003; 84153; 84402; 84403; 85025

== ENCOUNTER 2025-03-01 10:35 | Outpatient (CLI) | payer BC, MEDICARE ==
--- NOTE | 2025-03-01 19:16 | RADIOLOGY REPORT ---
EXAM: MR MRI PELVIS HISTORY: ELEVATED PROSTATE SPECIFIC ANTIGEN [PSA] TECHNIQUE: Multiparametric MRI of the pelvis/prostate without contrast. Overall limited evaluation given low resolution and lack of intravenous contrast. Small [id number] T2 axial images are adequate for interpretation. COMPARISON: US ULTRASOUND PELVIS W/ORWO DPLX on DOS: 01/04/25 FINDINGS: [PROSTATE SIZE]: 4.7 x 6 x 6.1 cm [PROSTATE VOLUME]: 90.07 cc compatible with severe prostatomegaly [TRANSITION/CENTRAL ZONE]: Area of heterogeneous low T2 signal measuring up to 1.8 cm in the right anterior transition zone, midgland. Areas of encapsulated benign prostatic hyperplastic nodules. Significant median lobe hypertrophy. [PERIPHERAL ZONE]: Background of linear T2 hypointense wispy low signal compatible with background of prostatitis. No area of diffusion restriction. LESION #1: PI-RADS ASSESSMENT CATEGORY: 3 LOCATION: Right anterior transitional zone, midgland SIZE: 1.8 cm (series 10, image 16) RELATIONSHIP TO CAPSULE: Broad capsular contact measuring greater than 1.5 cm. T2: Heterogeneous signal intensity with obscured margins (3) DIFFUSION/ADC: No diffusion restriction DYNAMIC CONTRAST-ENHANCEMENT: Positive [SEMINAL VESICLES]: Normal [NEUROVASCULAR BUNDLES]: Normal [URETHRA (INCLUDING BLADDER INLET AND UROGENITAL DIAPHRAGM)]: Normal [LYMPH NODES]: No lymphadenopathy [BLADDER]: Decompressed [BONES]: Normal [OTHER]: Trace pelvic ascites IMPRESSION: 1. PI-RADS 3 lesion of the right anterior transitional zone, midgland. 2. No suspicious lesion of the peripheral zone. 3. Background of prostatitis of the peripheral zone. 4. Severe prostatomegaly with median lobe hypertrophy. * PI-RADS 5 = Very high (clinically significant cancer is highly likely to be present) * PI-RADS 4 = High (clinically significant cancer is likely to be present) * PI-RADS 3 = Indeterminate (the presence of clinically significant cancer is equivocal) * PI-RADS 2 = Low (clinically significant cancer is unlikely to be present) * PI-RADS 1 = Very low (clinically significant cancer is highly unlikely to be present)
== END 2025-03-01 23:59 | disposition home or self-care (01) ==
LOC: MRI 10:35
PROVIDERS: ATTEND Nurse Practitioner Family
DX: R97.20 Elevated prostate specific antigen [PSA] (principal); N40.0 Benign prostatic hyperplasia without lower urinary tract symptoms
CPT/HCPCS: 72195

== ENCOUNTER 2025-03-14 09:11 | Outpatient (CLI) | payer BC | END 2025-03-14 23:59 | disposition home or self-care (01) | LOC: RAD 09:11 | PROVIDERS: ATTEND Nurse Practitioner Family | DX: N40.0 Benign prostatic hyperplasia without lower urinary tract symptoms (principal); R97.20 Elevated prostate specific antigen [PSA] | CPT/HCPCS: 36415; 84153 ==